=== PATIENT | male | born 1955 | race Caucasian/White ===

== ENCOUNTER 2024-05-25 12:06 | Emergency (ER) | payer MEDICARE, SELFPAY ==
[2024-05-25 12:08] VITALS: BP 185/90; PULSE 73; RESP 16; TEMP 36.5; O2SAT 97; BMI 27.1
--- NOTE | 2024-05-25 12:20 | ED_ITS ---
HPI - Extremity Injury (Lower) <Venita Lipscomb PA-C - Last Filed: 05/25/24 14:36> General Chief Complaint: Extremity Injury, Lower Stated Complaint: sent by [place] r/o blood clot rt leg Time Seen by Provider: 05/25/24 12:20 Source: patient Mode of arrival: Ambulatory History of Present Illness HPI Narrative: Mr. Siddiqi is a very pleasant 69-year-old male with a past medical history of hypertension, GERD, bipolar disorder, prediabetes who presents to the emergency department after being sent by walk-in clinic Dr. Lim for DVT rule out of right leg. Patient reports on Tuesday he twisted and injured his right hip while walking at a store. States that shortly after injuring the hip he developed pain and sensation of numbness on the anterior right lower leg from the knee down to the foot. States that the hip pain has entirely resolved but he continues to have pain and numbness of the right lower leg which prompted him to go to the walk-in clinic in [place]. He was then sent to the emergency depar tme for ultrasound of the right lower leg to rule out DVT. Patient describes sensation of swelling/tightness in the right lower leg and numbness which makes it hard for him to walk/Dr.. He denies back pain, hip pain, abdominal pain, weakness, color change or direct trauma to the lower leg. No history of blood clot, recent surgery or prolonged long travel. Related Data Home Medications Medication Instructions Recorded Confirmed VITAMIN D (Vitamin D3) 1,000 unit PO QDAY ##0 08/01/11 metoprolol tartrate 25 mg tablet 75 mg PO BID ##0 08/01/11 quetiapine 300 mg tablet (Seroquel) 50 mg PO QDAY ##0 08/01/11 [cinnamon] ##0 06/07/16 omega 7-xmw-jun-fish oil 1,000 mg ##0 06/07/16 (120 mg-180 mg) capsule (Fish Oil) Previous Rx's Medication Instructions Recorded gabapentin 100 mg capsule 100 mg PO BID-TID #30 caps 05/25/24 Allergies Allergy/AdvReac Type Severity Reaction Status Date / Time CODEINE Allergy Unknown SEVERE N/V Uncoded 07/20/17 12:21 From VICODIN Allergy Unknown MAKES HIM Uncoded 07/20/17 12:21 PASS OUT Review of Systems <Venita Lipscomb PA-C - Last Filed: 05/25/24 14:36> Review of Systems ROS Unobtainable: All systems reviewed & are unremarkable except as noted in HPI and below Patient History <Venita Lipscomb PA-C - Last Filed: 05/25/24 14:36> Surgical History Status post cholecystectomy Exam <Venita Lipscomb PA-C - Last Filed: 05/25/24 14:36> Narrative Exam Narrative: GENERAL: 69 year old patient appears stated age. Well-developed patient, in no acute distress. HEAD: Atraumatic. Normocephalic. NECK: Trachea midline. Cervical ROM intact. CARDIOVASCULAR: Regular rate and rhythm. RESPIRATORY: ?Nonlabored respirations. ?Speaking in clear, full sentences. ?Clear to auscultation. Breath sounds equal bilaterally. No wheezes, rales, or rhonchi. ? EXTREMITIES: Subjective decreased sensation on the anterior right lower leg from just distal to the knee all the way to the dorsal aspect of the right foot. No tenderness to palpation of the knee or the tibia but he does have tenderness to palpation of the dorsal foot and the lateral malleolus of the right ankle. No tenderness to palpation of atwood, knee, hip. There are no obvious skin changes, no color change or erythema, no increased warmth, no obvious edema or swelling, compartment soft and compressible of the right lower leg. 1+ palpable bilateral DP and PT pulses, brisk capillary refill on all the toes. No pain with flexion and extension of the right knee. No obvious foot drop, but there is pain with both dorsflexion and plantar flexion of R foot. BACK: Nontender without deformity or crepitance. No flank tenderness. No tenderness to palpation of bilateral hips. NEURO: AOx3. ?Clear speech. ?Ambulates with slight limp secondary to right lower leg pain. He has sensation intact throughout the upper and lower extremities but reports that the sensation is decreased on the anterior right lower extremity distal to the knee. There is still 5/5 bilateral knee flexion and extension strength. SKIN: No rash or erythema of visible areas Initial Vital Signs Initial Vital Signs: Vital Signs Temperature 97.7 F 05/25/24 12:08 Pulse Rate 73 05/25/24 12:08 Respiratory Rate 16 05/25/24 12:08 Blood Pressure 185/90 H 05/25/24 12:08 Pulse Oximetry 97 05/25/24 12:08 Oxygen Delivery Method Room Air 05/25/24 12:08 <Liana Manzano DO - Last Filed: 05/26/24 08:08> Initial Vital Signs Initial Vital Signs: Vital Signs Temperature 97.7 F 05/25/24 12:08 Pulse Rate 73 05/25/24 12:08 Respiratory Rate 16 05/25/24 12:08 Blood Pressure 185/90 H 05/25/24 12:08 Pulse Oximetry 97 05/25/24 12:08 Oxygen Delivery Method Room Air 05/25/24 12:08 Course <Venita Lipscomb PA-C - Last Filed: 05/25/24 14:36> Orders Ordered: Discontinued Medications Acetaminophen (Acetaminophen 325 Mg Tablet) 650 mg PO NOW ONE Stop: 05/25/24 12:35 Last Admin: 05/25/24 13:06 Dose: 650 mg Documented By: RAYMOND Gabapentin (Gabapentin 100 Mg Capsule) 100 mg PO NOW ONE Stop: 05/25/24 12:35 Last Admin: 05/25/24 13:07 Dose: 100 mg Documented By: RAYMOND Vital Signs Vital signs: Vital Signs - 8 hr 05/25/24 12:08 05/25/24 14:08 Temperature 97.7 F Pulse Rate 73 71 Respiratory Rate 16 18 Blood Pressure 185/90 H 133/75 Pulse Oximetry 97 98 Oxygen Delivery Method Room Air Room Air <Liana Manzano DO - Last Filed: 05/26/24 08:08> Orders Ordered: Discontinued Medications Acetaminophen (Acetaminophen 325 Mg Tablet) 650 mg PO NOW ONE Stop: 05/25/24 12:35 Last Admin: 05/25/24 13:06 Dose: 650 mg Documented By: RAYMOND Gabapentin (Gabapentin 100 Mg Capsule) 100 mg PO NOW ONE Stop: 05/25/24 12:35 Last Admin: 05/25/24 13:07 Dose: 100 mg Documented By: RAYMOND Vital Signs Vital signs: Vital Signs - 8 hr 05/25/24 12:08 05/25/24 14:08 Temperature 97.7 F Pulse Rate 73 71 Respiratory Rate 16 18 Blood Pressure 185/90 H 133/75 Pulse Oximetry 97 98 Oxygen Delivery Method Room Air Room Air MDM - Extremity Injury (Lower) <Venita Lipscomb PA-C - Last Filed: 05/25/24 14:36> Medical Records Attestation: I reviewed the patient's medical records. Medical records narrative: Reviewed [facility] walk in clinic printed note sent with patient. [facility] Narrative Medical decision making narrative: 69-year-old male with a past medical history of hypertension, GERD, bipolar diso rder, prediabetes who presents to the emergency department after being sent by walk-in clinic Dr. Lim for DVT rule out of right leg. Patient reports on Tuesday he twisted and injured his right hip while walking at a store. States that shortly after injuring the hip he developed pain and sensation of numbness on the anterior right lower leg from the knee down to the foot. Differential diagnosis includes but isn't limited to ankle fracture, ankle sprain, ankle strain, nerve compression, peroneal nerve injury, lumbar radiculopathy, sacroiliitis, piriformis syndrome, DVT, diabetic neuropathy, etc. On exam the patient is in no acute distress, nontoxic appearing, vital signs within normal limits except for elevated blood pressure of 185/90. Patient has been having pain and decreased sensation of the right lower leg ever since injuring his right hip earlier this week. Was sent by the walk-in clinic for DVT rule out given his reported pain and sensation of swelling. On exam the pat dilip's right lower leg is neurovascularly intact, he does have palpable pulses, brisk capillary refill, his sensation is reported be decreased on the anterior right lower leg but not completely absent. He still has proper movement of the right lower leg, Achilles tendon in his intact. He has tenderness to palpation of the right foot and the ankle but no tenderness to palpation of the atwood, knee, thigh, hip, back. Reported paresthesias are somewhat in the distribution of peroneal nerve vs. L5 vs. saphenous/superficial fibular cutaneous nerves, no obvious foot drop. We will proceed with ultrasound to rule out DVT as indicated by walk-in clinic physician in addition to x-rays of the hip, ankle, foot. We will treat with a dose of Tylenol and low dose gabapentin, pt recalls using gabapentin in the past. X-ray of right ankle, foot, hip reveal no acute fractures or dislocations. Right lower extremity venous ultrasound reveals no deep venous thrombosis. All imaging results were printed and discussed with the patient. His pain is improved significantly with the acetaminophen and the gabapentin, reports his pain went from an 8 to a 3. His right ankle was also wrapped using an Red wrap for support. He was provided with a walker as he does not feel safe using crutches. His son and friend to drive him are also in the emergency department. He ambulates independently with a walker. Symptoms are overall most consistent with a peroneal nerve type injury however we discussed potential of neuropathy, radiculopathy, and the need for further evaluation by both his primary care doctor and an orthopedic doctor. He verbalized understanding of all information. Discussed risks of gabapentin. Patient and family are happy with the plan, he is stable for discharge home, all vital signs within normal limits. Strict ED return precautions discussed. Discharge Plan Departure Patient Disposition: Home Clinical Impression: Acute pain of right lower extremity, Neuropathy of right peroneal nerve Instructions: DI for Peripheral Neuropathy Activity Restrictions/Additional Instructions: Dear Devang, Thank you for coming to the emergency department today. Today you were evaluated for pain and some numbness of the right lower leg below the knee after injuring your right hip. We obtained x-rays of the hip, ankle and foot which revealed no fractures or dislocations, and an ultrasound of the right leg which showed no blood clots. Your symptoms are most consistent with irritation of the peroneal nerve in the lower leg. You were treated with Tylenol and gabapentin in the emergency department which improved her symptoms, so I have prescribed you a course of gabapentin to try at home. I would like you to follow up with the orthopedic doctor for further evaluation, or your primary care doctor. You may call to schedule an appointment with [facility] at [phone]. Please be aware that gabapentin can make you drowsy so it is very important not to drive a car operate heavy machinery or drink alcohol while taking this medication. Please use RICE therapy for your pain in addition to ibuprofen/acetaminophen. Rest the painful area. Ice the area of pain/swelling for at least 15 minutes, 4x a day. Compress the area of swelling using a brace, wrap, or splint if applied. Elevate the painful or swollen extremity by supporting it above the level of the heart with pillows when sitting or laying. Please take Ibuprofen (Motrin/Advil) or Acetaminophen (Tylenol) for pain. These are available over the counter. You may take Ibuprofen 600 mg every 8 hours with food for pain. You may also take Acetaminophen 650 mg every 4-6 hours for pain. Do not exceed 3000 mg of Tylenol a day as this can cause liver damage. Do not drink alcohol with either of these medications. Happy Mayers's Day! Please follow up with your primary care doctor within the next 2-3 days for ER follow-up. (If you do not have a PCP you can call [phone]. ?to schedule an appointment with an [facility] Primary Care Provider) IF YOU DEVELOP ANY NEW OR WORSENING SYMPTOMS, RETURN TO THE ER! Please read the attached instructions, they highlight more specific treatments and interventions for you at home. Thank you for letting me participate in your care, Venita Lipscomb PA-C Prescriptions: New gabapentin 100 mg capsule 100 mg PO BID-TID Qty: 30 0RF No Action quetiapine [Seroquel] 300 MG tablet 50 mg PO QDAY Qty: 0 metoprolol tartrate 25 MG tablet 75 mg PO BID Qty: 0 VITAMIN D (Vitamin D3) 1,000 unit PO QDAY Qty: 0 omega 9-pob-vvk-fish oil [Fish Oil] 1,000 MG capsule Qty: 0 [cinnamon] Qty: 0 Referrals: Benita Goldman MD [Primary Care Provider] - Stand Alone Forms: Patient Portal/API/Survey ED Sign-out <Liana Manzano DO - Last Filed: 05/26/24 08:08> Cosign ED Attending Andrew Attestation: I was available for consultation.
--- NOTE | 2024-05-25 12:34 | DI.RAD.S_ITS ---
PROCEDURE: XR FOOT RT MIN 3V INDICATIONS: pain; numbness; no direct trauma TECHNIQUE: 3 views of the foot were acquired. COMPARISON: None. FINDINGS: Bones: No fractures or dislocations. No suspicious bony lesions. Soft tissues: No tibiotalar joint effusion. Achilles tendon appears normal. IMPRESSION: No acute bony abnormality. Dictated by: Barak Su M.D. on 05/25/2024 at 13:09 Approved by: Barak Su M.D. on 05/25/2024 at 13:10
--- NOTE | 2024-05-25 12:34 | DI.US.S_ITS ---
PROCEDURE: US PERIPH VENOUS LOW EXTREM RT INDICATIONS: SWELLING AND NUMBNESS TECHNIQUE: Real-time imaging, as well as color and pulse Doppler interrogation, were performed of the lower extremity deep veins from the inguinal ligament to the popliteal fossa, with documentation of the visualized calf veins. COMPARISON: None. FINDINGS: The common femoral, femoral, popliteal, and the visualized calf veins are normally compressible, and free of intraluminal thrombus. Color and pulse Doppler demonstrate normal phasic intraluminal flow. There is normal augmentation response to distal compression maneuver. IMPRESSION: No findings of lower extremity deep venous thrombosis. Dictated by: Finn Cottrell M.D. on 05/25/2024 at 13:49 Approved by: Finn Cottrell M.D. on 05/25/2024 at 13:50
--- NOTE | 2024-05-25 12:34 | DI.RAD.S_ITS ---
PROCEDURE: XR HIP W PEL IF DONE RT 2V INDICATIONS: tweaked R hip Sun, now with numbness RLL TECHNIQUE: AP pelvis with lateral view(s) of the right hip(s). COMPARISON: None. FINDINGS: Bones: No fractures or dislocations. Pelvic ring appears intact. No suspicious bony lesions. Soft tissues: The visualized bowel gas pattern is normal. No suspicious soft tissue calcifications. IMPRESSION: No acute bony abnormality. Dictated by: Barak Su M.D. on 05/25/2024 at 13:09 Approved by: Barak Su M.D. on 05/25/2024 at 13:09
--- NOTE | 2024-05-25 12:34 | DI.RAD.S_ITS ---
PROCEDURE: XR ANKLE RT MIN 3V INDICATIONS: lateral pain / numbness TECHNIQUE: 3 views of the ankle were acquired. COMPARISON: None. FINDINGS: Bones: No fractures or dislocations. Ankle mortise is normally aligned. No suspicious bony lesions. Soft tissues: No tibiotalar joint effusion. Achilles tendon appears normal. IMPRESSION: No acute bony abnormality or significant effusion. Dictated by: Barak Su M.D. on 05/25/2024 at 13:10 Approved by: Barak Su M.D. on 05/25/2024 at 13:10
[2024-05-25] MEDS: ACETAMINOPHEN 325 MG TABLET 650 MG PO (13:06)
[2024-05-25] MEDS: GABAPENTIN 100 MG CAPSULE PO (13:07)
[2024-05-25 14:08] VITALS: BP 133/75; PULSE 71; RESP 18; O2SAT 98
== END 2024-05-25 14:48 | disposition home or self-care (01) ==
PROVIDERS: Emergency Provider Physician Assistant; PCP Family Medicine
DX: G57.31 Lesion of lateral popliteal nerve, right lower limb (principal); M79.604 Pain in right leg; R60.9 Edema, unspecified; R73.03 Prediabetes; I10 Essential (primary) hypertension
CPT/HCPCS: 73502; 73610; 73630; 93971; 99284

== ENCOUNTER 2024-07-17 09:43 | Emergency (ER) | payer MEDICARE, SELFPAY ==
[2024-07-17 10:12] VITALS: BP 171/81; PULSE 73; RESP 18; TEMP 36.7; O2SAT 98
--- NOTE | 2024-07-17 10:19 | DI.RAD.S_ITS ---
PROCEDURE: XR KNEE RT 3V INDICATIONS: pain TECHNIQUE: 3 views of the knee were acquired. COMPARISON: None. FINDINGS: Bones: No fractures or dislocations. Early degenerative change. Small marginal osteophytes. No suspicious bony lesions. Soft tissues: Trace joint effusion. No suspicious soft tissue calcifications. IMPRESSION: No acute bony abnormality or significant effusion. Early degenerative arthritis. Dictated by: Luis Antonio Cox M.D. on 07/17/2024 at 10:48 Approved by: Luis Antonio Cox M.D. on 07/17/2024 at 10:49
--- NOTE | 2024-07-17 12:24 | ED.GENADULT ---
HPI - General Adult <Twila Rodriguez PA-C - Last Filed: 07/17/24 16:31> General Chief complaint: Extremity Injury, Upper Stated complaint: RT Knee/Leg pain & numbness Time Seen by Provider: 07/17/24 12:18 Source: patient Mode of arrival: Family Vehicle History of Present Illness HPI narrative: 69-year-old male with pre-existing right knee pain presents to the ED with an exacerbation of right leg pain for 5 days. Patient states that this acute exacerbation happened right after he mowed his lawn. Patient describes the pain as going from his knee down to the top of his right foot. Patient is experiencing numbness of the right foot, although the numbness has existed prior to this exacerbation. Patient states he was seen in the ED for similar symptoms in May. However, patient states that he is also feeling right hamstring pain this time around. No trauma. Related Data Home Medications Medication Instructions Recorded Confirmed VITAMIN D (Vitamin D3) 1,000 unit PO QDAY ##0 08/01/11 metoprolol tartrate 25 mg tablet 75 mg PO BID ##0 08/01/11 quetiapine 300 mg tablet (Seroquel) 50 mg PO QDAY ##0 08/01/11 [cinnamon] ##0 06/07/16 omega 5-bax-cej-fish oil 1,000 mg ##0 06/07/16 (120 mg-180 mg) capsule (Fish Oil) Previous Rx's Medication Instructions Recorded gabapentin 100 mg capsule 100 mg PO BID-TID #30 caps 05/25/24 cyclobenzaprine 10 mg tablet 10 mg PO TID PRN muscle spasm #14 07/17/24 tabs Allergies Allergy/AdvReac Type Severity Reaction Status Date / Time acetaminophen [From Vicodin] Allergy Unknown makes him Verified 07/17/24 12:36 pass out codeine Allergy Unknown Nausea/vomi Verified 07/17/24 12:36 ting hydrocodone [From Vicodin] Allergy Unknown makes him Verified 07/17/24 12:36 pass out Review of Systems <Twila Rodriguez PA-C - Last Filed: 07/17/24 16:31> Constitutional Constitutional: Denies chills, Denies fatigue, Denies fever(s), Denies frequent falls, Denies lethargy and Denies weakness Eyes Eyes: Denies change in vision, Denies eye discharge, Denies irritation and Denies loss of vision ENT Ears, Nose, Mouth, and Throat: Denies change in voice, Denies dizziness, Denies neck pain, Denies sore throat and Denies throat swelling Cardiovascular Cardiovascular: Denies chest pain, Denies irregular heart rhythm, Denies lightheadedness, Denies palpitations, Denies dyspnea, Denies dyspnea on exertion and Denies orthopnea Respiratory Respiratory: Denies cough, Denies dyspnea, Denies dyspnea on exertion and Denies wheezing Gastrointestinal Gastrointestinal: Denies abdominal pain, Denies change in bowel habits, Denies diarrhea, Denies nausea and Denies vomiting Musculoskeletal Musculoskeletal: Denies neck pain and Denies numbness Comments: Right-sided knee pain, radiating down his leg. R hamstring pain. Right foot numbness Integumentary/Breasts Skin/Breast: Denies pruritus, Denies erythema, Denies rash and Denies wounds Neurologic Neurologic: Denies behavioral changes, Denies confusion, Denies dizziness, Denies frequent falls, Denies loss of vision, Denies numbness and Denies weakness Psychiatric Psychiatric: Denies anxiety, Denies behavioral changes, Denies confusion, Denies depression, Denies homicidal ideation and Denies suicidal ideation Endocrine Endocrine: Denies fatigue, Denies flushing and Denies palpitations Hematologic/Lymphatic Hematologic/Lymphatic: Denies easy bruising Allergic/Immunologic Allergic/Immunologic: Denies urticaria, Denies throat swelling and Denies wheezing Patient History <Twila Rodriguez PA-C - Last Filed: 07/17/24 16:31> Surgical History Status post cholecystectomy Social History Smoking Status: Never smoker Smoking Status: Never smoker Exam <Twila Rodriguez PA-C - Last Filed: 07/17/24 16:31> Narrative Exam Narrative: Const General:?cooperative, healthy appearing and comfortable [facility] Head:?normal to inspection Ears:?hearing grossly normal bilaterally Nose:?external nose normal Face and sinus:?normal facial exam and sinuses nontender Mouth:?oral mucosae normal Throat:?posterior oropharynx normal Eyes General:?appearance normal, both eyes and all related structures Neck Neck:?normal visual inspection and no lymphadenopathy noted Resp Effort & Inspection:?normal respiratory effort Auscultation:?clear to auscultation bilaterally Cardio Rate:?regular rate Rhythm:?regular rhythm Musculoskeletal There is no tenderness to palpation. No erythema, swelling, deformities, bruising. Full range of motion. Gait is normal. Neurovascularly intact. Neuro General:?patient alert, patient awake and patient oriented x3 Initial Vital Signs Initial Vital Signs: Vital Signs Temperature 98.1 F 07/17/24 10:12 Pulse Rate 73 07/17/24 10:12 Respiratory Rate 18 07/17/24 10:12 Blood Pressure 171/81 H 07/17/24 10:12 Pulse Oximetry 98 07/17/24 10:12 Oxygen Delivery Method Room Air 07/17/24 10:12 <Wilfrido Tao MD - Last Filed: 07/18/24 07:04> Initial Vital Signs Initial Vital Signs: Vital Signs Temperature 98.1 F 07/17/24 10:12 Pulse Rate 73 07/17/24 10:12 Respiratory Rate 18 07/17/24 10:12 Blood Pressure 171/81 H 07/17/24 10:12 Pulse Oximetry 98 07/17/24 10:12 Oxygen Delivery Method Room Air 07/17/24 10:12 Course <Twila Rodriguez PA-C - Last Filed: 07/17/24 16:31> Orders Ordered: Discontinued Medications Cyclobenzaprine HCl (Cyclobenzaprine 10 Mg Tablet) 10 mg PO NOW ONE Stop: 07/17/24 12:31 Last Admin: 07/17/24 12:42 Dose: 10 mg Documented By: ORTEGA Ibuprofen (Ibuprofen 400 Mg Tablet) 800 mg PO NOW ONE Stop: 07/17/24 12:33 Last Admin: 07/17/24 12:42 Dose: 800 mg Documented By: ORTEGA Vital Signs Vital signs: Vital Signs - 8 hr 07/17/24 10:12 07/17/24 13:12 07/17/24 13:42 Temperature 98.1 F 98.4 F Pulse Rate 73 16 L 73 Respiratory Rate 18 16 16 Blood Pressure 171/81 H 174/82 H 153/90 H Pulse Oximetry 98 98 97 Oxygen Delivery Method Room Air Room Air Room Air <Wilfrido Tao MD - Last Filed: 07/18/24 07:04> Orders Ordered: Discontinued Medications Cyclobenzaprine HCl (Cyclobenzaprine 10 Mg Tablet) 10 mg PO NOW ONE Stop: 07/17/24 12:31 Last Admin: 07/17/24 12:42 Dose: 10 mg Documented By: ORTEGA Ibuprofen (Ibuprofen 400 Mg Tablet) 800 mg PO NOW ONE Stop: 07/17/24 12:33 Last Admin: 07/17/24 12:42 Dose: 800 mg Documented By: ORTEGA Vital Signs Vital signs: Vital Signs - 8 hr 07/17/24 10:12 07/17/24 13:12 07/17/24 13:42 Temperature 98.1 F 98.4 F Pulse Rate 73 16 L 73 Respiratory Rate 18 16 16 Blood Pressure 171/81 H 174/82 H 153/90 H Pulse Oximetry 98 98 97 Oxygen Delivery Method Room Air Room Air Room Air Medical Decision Making <Twila Rodriguez PA-C - Last Filed: 07/17/24 16:31> MDM Narrative Medical decision making narrative: 69-year-old male with pre-existing right knee pain presents to the ED with an exacerbation of right leg pain for 5 days. Concern for fracture/dislocation versus musculoskeletal sprain/strain versus DVT versus other. X-ray of the knee without acute findings. Will obtain ultrasound. Will treat with Flexeril and ibuprofen. Will reassess. Ultrasound negative for lower extremity DVT. Discussed findings with patient. Patient's symptoms improved with Flexeril and ibuprofen. Prescribed Flexeril. Recommend continuing ibuprofen and Flexeril. Recommend follow-up with PCP and ortho as soon as possible. ED return precautions discussed with patient. Patient verbalized understanding. Medical records reviewed: Yes Discharge Plan Departure Patient Disposition: Home Clinical Impression: Knee pain Qualifiers: Chronicity: acute Laterality: right Qualified Code(s): M25.561 - Pain in right knee Instructions: DI for Knee Pain Activity Restrictions/Additional Instructions: You were evaluated in the ED today for right-sided knee pain. Your ultrasound and x-ray were normal. It appears that your symptoms are an exacerbation of your pre-existing knee pain. You are being prescribed a muscle relaxant for relief from the pain. You may also take 600-800 mg of ibuprofen with food every 8 hours for pain relief. Please follow-up with your PCP and ortho specialist as soon as possible. Return to the ED if you have worsening symptoms. Prescriptions: New cyclobenzaprine 10 mg tablet 10 mg PO TID PRN (Reason: muscle spasm) Qty: 14 0RF No Action quetiapine [Seroquel] 300 MG tablet 50 mg PO QDAY Qty: 0 metoprolol tartrate 25 MG tablet 75 mg PO BID Qty: 0 VITAMIN D (Vitamin D3) 1,000 unit PO QDAY Qty: 0 omega 1-hef-xzt-fish oil [Fish Oil] 1,000 MG capsule Qty: 0 [cinnamon] Qty: 0 gabapentin 100 mg capsule 100 mg PO BID-TID Qty: 30 0RF Referrals: Benita Goldman MD [Primary Care Provider] - Stand Alone Forms: Patient Portal/API/Survey ED Sign-out <Wilfrido Tao MD - Last Filed: 07/18/24 07:04> Cosign ED Attending Cosignature Attestation: I was immediately available in the department for consultation. This documentation has been reviewed and I agree with assessment and plan. Supervised by Wilfrido Tao MD
--- NOTE | 2024-07-17 12:31 | DI.US.S_ITS ---
PROCEDURE: US PERIP VENOUS LOW EXTREM RT INDICATIONS: R leg pain TECHNIQUE: Real-time imaging, as well as color and pulse Doppler interrogation, were performed of the lower extremity deep veins from the inguinal ligament to the popliteal fossa, with documentation of the visualized calf veins. COMPARISON: [facility], US, US [facility] VENOUS LOW EXTREM RT, 05/25/2024, 13:26. FINDINGS: The common femoral, femoral, popliteal, and the visualized calf veins are normally compressible, and free of intraluminal thrombus. Color and pulse Doppler demonstrate normal phasic intraluminal flow. There is normal augmentation response to distal compression maneuver. IMPRESSION: Negative right lower extremity duplex venous ultrasound for DVT. Dictated by: Luis Antonio Cox M.D. on 07/17/2024 at 13:18 Approved by: Luis Antonio Cox M.D. on 07/17/2024 at 13:28
[2024-07-17] MEDS: IBUPROFEN 400 MG TABLET 800 MG PO (12:42)
[2024-07-17] MEDS: CYCLOBENZAPRINE 10 MG TABLET PO (12:42)
[2024-07-17 13:12] VITALS: BP 174/82; PULSE 16; RESP 16; TEMP 36.9; O2SAT 98
[2024-07-17 13:42] VITALS: BP 153/90; PULSE 73; RESP 16; O2SAT 97
== END 2024-07-17 13:42 | disposition home or self-care (01) ==
PROVIDERS: Emergency Provider Student in an Organized Health Care Education/Training Program; PCP Family Medicine
DX: M25.561 Pain in right knee (principal); R20.0 Anesthesia of skin; M79.651 Pain in right thigh; Y93.H9 Activity, other involving exterior property and land maintenance, building and construction
CPT/HCPCS: 73562; 93971; 99283

== ENCOUNTER 2024-08-01 21:22 | Emergency (ER) | payer MEDICARE, SELFPAY ==
[2024-08-01 21:37] VITALS: BP 108/69; PULSE 94; RESP 20; TEMP 36.5; O2SAT 95
--- NOTE | 2024-08-01 21:58 | PC.NURSE ---
pt c/o difficulty urinating x one month, pt voided upon arrival to room with a bladder scan post void of 57 ml, urine is yellow with a foul smell and sent to lab for UA
[2024-08-01 22:04] LABS: Appearance Urine UA CLEAR; Bilirubin Urine UA NEGATIVE (NEGATIVE); Color Urine UA YELLOW; Glucose Urine UA 3+ g/dL (Negative); Ketones Urine UA NEGATIVE (NEGATIVE); Leukocyte Esterase Urine UA NEGATIVE (NEGATIVE); Nitrite Urine UA NEGATIVE (Negative); Occult Blood Urine UA NEGATIVE (Negative); Protein Urine UA NEGATIVE (Negative)
[2024-08-01 22:11] LABS: Bacteria Urine None Seen; Culture Indicated Urine Cult Not Indicated; RBC Urine None Seen (0-5/HPF); Squamous Epithelial Cell Urine None Seen (0-5/HPF); Urine Volume 10mL (spun); WBC Urine None Seen (0-5/HPF)
[2024-08-01 23:00] VITALS: BP 110/60; PULSE 88; RESP 18; O2SAT 100
--- NOTE | 2024-08-01 23:13 | ED.MALEGU ---
HPI - Male Genitourinary General Chief complaint: Urogenital-Male Stated complaint: issues with urination Time Seen by Provider: 08/01/24 21:53 Source: patient Mode of arrival: Ambulatory History of Present Illness HPI Narrative: 69-year-old gentleman history of hypertension and anxiety presents with difficulty urinating and emptying his bladder that has been intermittent over the last few months worse in the past month. Patient denies enlarged prostate, hematuria, penile discharge, or testicular pain or fever or chills. Other than what is stated 14 point review of system is negative. Related Data Home Medications Medication Instructions Recorded Confirmed VITAMIN D (Vitamin D3) 1,000 unit PO QDAY ##0 08/01/11 metoprolol tartrate 25 mg tablet 75 mg PO BID ##0 08/01/11 quetiapine 300 mg tablet (Seroquel) 50 mg PO QDAY ##0 08/01/11 [cinnamon] ##0 06/07/16 omega 7-mzm-vwo-fish oil 1,000 mg ##0 06/07/16 (120 mg-180 mg) capsule (Fish Oil) Previous Rx's Medication Instructions Recorded gabapentin 100 mg capsule 100 mg PO BID-TID #30 caps 05/25/24 cyclobenzaprine 10 mg tablet 10 mg PO TID PRN muscle spasm #14 07/17/24 tabs Allergies Allergy/AdvReac Type Severity Reaction Status Date / Time acetaminophen [From Vicodin] Allergy Unknown makes him Verified 07/17/24 12:36 pass out codeine Allergy Unknown Nausea/vomi Verified 07/17/24 12:36 ting hydrocodone [From Vicodin] Allergy Unknown makes him Verified 07/17/24 12:36 pass out Review of Systems Review of Systems ROS Unobtainable: All systems reviewed & are unremarkable except as noted in HPI and below Patient History Surgical History Status post cholecystectomy Social History Smoking Status: Never smoker Smoking Status: Never smoker Exam Narrative Exam Narrative: GENERAL: [69] year old patient appears stated age. Well-developed patient, in mild distress. HEAD: Atraumatic. Normocephalic. EYES: Pupils equal round and reactive. Extraocular motions intact. No scleral icterus. No injection or drainage. ENT: Nose without bleeding, purulent drainage. Throat without erythema, tonsillar hypertrophy or exudate. Airway patent. NECK: Trachea midline. Non tender CARDIOVASCULAR: Regular rate and rhythm without murmurs, gallops, or rubs. RESPIRATORY: Clear to auscultation. Breath sounds equal bilaterally. No wheezes, rales, or rhonchi. GASTROINTESTINAL: Abdomen soft, non-tender, nondistended. EXTREMITIES: No edema or joint tenderness. BACK: Nontender without deformity or crepitance. No flank tenderness. NEURO: AOx3. SKIN: No rash or erythema of visible areas Initial Vital Signs Initial Vital Signs: Vital Signs Temperature 97.7 F 08/01/24 21:37 Pulse Rate 94 H 08/01/24 21:37 Respiratory Rate 20 08/01/24 21:37 Blood Pressure 108/69 08/01/24 21:37 Pulse Oximetry 95 08/01/24 21:37 Oxygen Delivery Method Room Air 08/01/24 21:37 Course Orders Ordered: ED Orders 08/01/24 21:55 Urinalysis and Microscopic Stat 08/01/24 23:15 CT abdomen pelvis wo con Stat Discontinued Medications Tamsulosin HCl (Tamsulosin 0.4 Mg Capsule) 0.4 mg PO NOW ONE Stop: 08/01/24 23:17 Last Admin: 08/01/24 23:30 Dose: 0.4 mg Documented By: AB Vital Signs Vital signs: Vital Signs - 8 hr 08/01/24 21:37 Temperature 97.7 F Pulse Rate 94 H Respiratory Rate 20 Blood Pressure 108/69 Pulse Oximetry 95 Oxygen Delivery Method Room Air MDM - Male Genitourinary Lab Data Labs: Lab Results 08/01/24 Range/Units 21:55 Urine Color Yellow Urine Appearance Clear Urine pH 6.0 (4.5-8.0) Ur Specific [place] 1.010 (1.000-1.035) Urine Protein Negative (Negative) Urine Glucose (UA) 3+ H (Negative) g/dL Urine Ketones Negative (NEGATIVE) Urine Occult Blood Negative (Negative) Urine Nitrate Negative (Negative) Urine Bilirubin Negative (NEGATIVE) Urine Urobilinogen 1.0 (0.2) E.U./dL Ur Leukocyte Esterase Negative (NEGATIVE) Urine RBC None seen (0-5/HPF) Urine WBC None seen (0-5/HPF) Ur Squamous Epith Cells None seen (0-5/HPF) Urine Bacteria None seen (None) Ur Culture Indicated? Cult not indicated Vol Urine Centrifuged 10ml (spun) Imaging Data CT scan - abdomen/pelvis: Radiologist's Impression: [address] [address] [address] Scan Report Signed Patient: Yeyo Siddiqi MR#: [id number] : 1955 Acct:[id number] Age/Sex: 69 / M Date of Service: 08/01/24 Loc: ED Accession Number: [id number] Procedure: CT abdomen pelvis wo con Ordering Provider: Randall Campbell D.O. PROCEDURE: CT ABDOMEN PELVIS WO CON INDICATIONS: abd /pelvic pain TECHNIQUE: Axial sections were acquired from the lung bases to the pubic symphysis. Coronal and sagittal reformats were performed. For radiation dose reduction, the following was used: automated exposure control, adjustment of mA and/or kV according to patient size. COMPARISON: None. FINDINGS: Image quality: Diagnostic. Lower Chest: No significant findings. URINARY: Right Kidney: No stones or hydronephrosis. Right Ureter: No hydroureter. Left Kidney: Punctate nonobstructing left-sided nephrolithiasis. No hydronephrosis. Left Ureter: No hydroureter. Bladder: Normal wall thickness. No stones. ABDOMEN: Liver: Hepatic cysts. Additional subcentimeter hypoattenuating lesions, too small to characterize by CT. Gallbladder: Absent. Biliary ducts: No biliary dilation. Pancreas: No ductal dilation. Spleen: Size is within normal limits. Adrenal Glands: Nodular thickening of the left adrenal gland. Stomach and Bowel: Wall thickening of the 2nd segment of the duodenum, with associated fat stranding and trace fluid (series 2, image 46). Peritoneum: No abnormal intraperitoneal fluid. No free air. Ventral Wall: No hernia. Abdominal Nodes: No enlarged retroperitoneal or mesenteric lymph nodes. Vessels: Aorta and inferior vena cava are normal in size. PELVIS: Pelvic Organs: Unremarkable. Pelvic Nodes: Unremarkable. Miscellaneous: Small to moderate, bilateral direct inguinal hernias containing fat. Bones: Unremarkable. IMPRESSION: Small to moderate, bilateral, direct inguinal hernias containing fat. Wall thickening and adjacent inflammatory changes about the 2nd portion of the duodenum, suggestive of duodenitis. Correlate with symptoms. If there are no symptoms, endoscopic evaluation should be considered to exclude malignancy. MDM Narrative Medical decision making narrative: UA and CT scan reviewed. Even though patient came in with difficulty urinating he was able to void on his own and the bladder scan did not show that he was retaining urine. Vital signs, nurse triage note, medication list, old records, previous ER visits all reviewed. Differential diagnosis includes kidney stones kidney infection BPH diverticulitis tumor. Patient has upcoming PC appointment next Tuesday to follow up with. DC home on Protonix and Flomax. Discharge Plan Departure Patient Disposition: Home Clinical Impression: Duodenitis, Difficulty urinating Prescriptions: No Action quetiapine [Seroquel] 300 MG tablet 50 mg PO QDAY Qty: 0 metoprolol tartrate 25 MG tablet 75 mg PO BID Qty: 0 VITAMIN D (Vitamin D3) 1,000 unit PO QDAY Qty: 0 omega 6-ehr-vwz-fish oil [Fish Oil] 1,000 MG capsule Qty: 0 [cinnamon] Qty: 0 cyclobenzaprine 10 mg tablet 10 mg PO TID PRN (Reason: muscle spasm) Qty: 14 0RF gabapentin 100 mg capsule 100 mg PO BID-TID Qty: 30 0RF Referrals: Benita Goldman MD [Primary Care Provider] - Stand Alone Forms: Patient Portal/API/Survey
[2024-08-01] MEDS: TAMSULOSIN 0.4 MG CAPSULE PO (23:30)
[2024-08-02] MEDS: PANTOPRAZOLE DR 20 MG TABLET 40 MG PO (00:55)
[2024-08-02 01:02] VITALS: BP 106/64; PULSE 86; RESP 16; O2SAT 99
== END 2024-08-02 01:03 | disposition home or self-care (01) ==
PROVIDERS: Emergency Provider Family Medicine; PCP Family Medicine
DX: K29.80 Duodenitis without bleeding (principal); R39.198 Other difficulties with micturition
CPT/HCPCS: 51798; 74176; 81001; 99283; 99284

== ENCOUNTER 2024-08-02 16:50 | Emergency (ER) | payer MEDICARE, SELFPAY ==
[2024-08-02] VITALS (11 sets, daily range): BP systolic 160–171; BP diastolic 80–92; PULSE 86–101; RESP 17–20; TEMP 37; O2SAT 93–98; BMI 26.6
--- NOTE | 2024-08-02 17:15 | ED_ITS ---
HPI - Extremity Problem <Venita Lipscomb PA-C - Last Filed: 08/02/24 19:01> General Chief complaint: Extremity Problem,Nontraumatic Stated complaint: leg swelling and px, was here earlier Time Seen by Provider: 08/02/24 17:14 Source: patient Mode of arrival: Family Vehicle History of Present Illness HPI Narrative: Mr. Siddiqi is a pleasant 69-year-old male with a past medical history of hypertension, GERD, bipolar disorder, prediabetes who presents to the emergency department for right leg pain x5 days. Patient was seen in the emergency department last night and discharged at 1:00 a.m. this morning for difficulty urinating. Patient states that he had been having trouble voiding so he came to the emergency department and did not tell the doctor about his severe right leg pain because they were busy. He had a CT abdomen and pelvis without IV contrast and a urine test performed which revealed bilateral fat containing inguinal hernias and duodenitis. Patient was not retaining urine so he was sent home with prescriptions for Flomax and Protonix however he states that he was unable to pick these up from [facility] because they told him that they needed physician approval 1st. Patient states that his urinary symptoms are somewhat improving but his right leg pain is becoming more and more severe. Patient 1st experienced similar right leg pain in the beginning of May after ?tweaking? his right hip. I had seen him myself in the emergency department 05/25/2024, and the symptoms he was having at that time are similar to what he is describing today, urgent care had sent him to the ER for US. He is reporting severe intermittent pain in his right hamstring and his right lower leg from the knee down to the foot. He reports the feeling of decreased sensation in the lower leg from the knee down to the foot and on the bottom of the foot. Reports that it feels like ?I am walking on a water of paper?. States that his symptoms never completely resolved after his injury in May but they were getting much better until he was mowing his lawn 5 days ago. The pain wakes him up out of sleep in the middle of the night. He has not taken anything for the pain today because he states nothing works including ibuprofen Tylenol and gabapentin. Reports that he did have a fall in the shower yesterday morning and he did have a fall in the emergency department last night however denies hitting his head, LOC or any exacerbation of pain after the falls. He denies chest pain, shortness of breath, fevers, chills. He does not use any drugs, tobacco products or drink alcohol. He lives alone, a neighbor has been driving him since he can not feel the bottom of his foot for the last 5 days. Related Data Home Medications Medication Instructions Recorded Confirmed VITAMIN D (Vitamin D3) 1,000 unit PO QDAY ##0 08/01/11 metoprolol tartrate 25 mg tablet 75 mg PO BID ##0 08/01/11 quetiapine 300 mg tablet (Seroquel) 50 mg PO QDAY ##0 08/01/11 [cinnamon] ##0 06/07/16 omega 7-lqt-kez-fish oil 1,000 mg ##0 06/07/16 (120 mg-180 mg) capsule (Fish Oil) Previous Rx's Medication Instructions Recorded gabapentin 100 mg capsule 100 mg PO BID-TID #30 caps 05/25/24 cyclobenzaprine 10 mg tablet 10 mg PO TID PRN muscle spasm #14 07/17/24 tabs methylprednisolone 4 mg tablets in See Rx Instructions PO .COMPLEX 08/02/24 a dose pack (Medrol (Lj)) #21 ea oxycodone-acetaminophen 5 mg-325 1 tab PO Q4-6H PRN pain #20 tabs 0424/25 mg tablet (Percocet) oxycodone-acetaminophen 5 mg-325 1 tab PO Q4-6H PRN pain #20 tabs 24/25 mg tablet (Percocet) oxycodone-acetaminophen 5 mg-325 1 tab PO Q6H PRN pain #20 tabs 24/25 mg tablet (Percocet) pantoprazole 40 mg tablet,delayed 40 mg PO DAILY #30 tabs 08/02/24 release (Protonix) tamsulosin 0.4 mg capsule (Flomax) 0.4 mg PO DAILY #30 caps 08/02/24 Allergies Allergy/AdvReac Type Severity Reaction Status Date / Time hydromorphone [From Dilaudid] Allergy Intermediate Shakiness Verified 08/02/24 23:55 acetaminophen [From Vicodin] Allergy Unknown makes him Verified 08/02/24 17:01 pass out codeine Allergy Unknown Nausea/vomi Verified 08/02/24 17:01 ting hydrocodone [From Vicodin] Allergy Unknown makes him Verified 08/02/24 17:01 pass out Review of Systems <Venita Lipscomb PA-C - Last Filed: 08/02/24 19:01> Review of Systems ROS Unobtainable: All systems reviewed & are unremarkable except as noted in HPI and below Patient History <Venita Lipscomb PA-C - Last Filed: 08/02/24 19:01> Surgical History Status post cholecystectomy Social History Smoking Status: Never smoker Smoking Status: Never smoker Exam <Venita Lipscomb PA-C - Last Filed: 08/02/24 19:01> Narrative Exam Narrative: GENERAL: 69 year old patient appears stated age. Well-developed patient, in acute distress, crying out and grabbing right hamstring 2/2 pain. HEAD: Atraumatic. Normocephalic. EYES: No scleral icterus. No injection or drainage. NECK: Trachea midline. Cervical ROM intact. CARDIOVASCULAR: Regular rate and rhythm. RESPIRATORY: ?Nonlabored respirations. ?Speaking in clear, full sentences. ?Clear to auscultation. He does have occasional cough. GASTROINTESTINAL: Abdomen soft, non-tender, nondistended. EXTREMITIES: Subjective pain in right hamstring and from right knee distally to foot. There is tenderness to palpation of the plantar right foot with no deformities. There is no lower extremity edema or deformities of the right lower extremity. No open wounds. Patient has sensation intact to light touch on the plantar and dorsal aspect of bilateral feet and strong DP and PT pulses on both feet, and brisk capillary refill in the toes. He does report decreased sensation from the knee down to the right foot. Limited R plantar/dorsiflexion due to pain BACK: There is no midline spinal tenderness, no flank tenderness, no SI joint tenderness. Patient does have exacerbation of right hamstring pain with right straight leg raise but declines any pain in the low back. NEURO: AOx3. ?Clear speech. ?Goes from sitting to standing position with the assistance, ambulates with the assistance and great pain in the right leg. SKIN: No rash or erythema of visible areas Initial Vital Signs Initial Vital Signs: Vital Signs Temperature 98.6 F 08/02/24 16:55 Pulse Rate 92 H 08/02/24 16:55 Respiratory Rate 17 08/02/24 16:55 Blood Pressure 171/89 H 08/02/24 16:55 Pulse Oximetry 98 08/02/24 16:55 Oxygen Delivery Method Room Air 08/02/24 16:55 <Randall Campbell, - Last Filed: 08/03/24 00:29> Initial Vital Signs Initial Vital Signs: Vital Signs Temperature 98.6 F 08/02/24 16:55 Pulse Rate 92 H 08/02/24 16:55 Respiratory Rate 17 08/02/24 16:55 Blood Pressure 171/89 H 08/02/24 16:55 Pulse Oximetry 98 08/02/24 16:55 Oxygen Delivery Method Room Air 08/02/24 16:55 Course <Venita Lipscomb PA-C - Last Filed: 08/02/24 19:01> Orders Ordered: ED Orders 08/02/24 17:00 CBC Auto Diff [Complete Blood Count AUTO DIFF] Stat CK [Creatine Kinase] Stat CMP [Comprehensive Metabolic Panel] Stat MG [Magnesium] Stat Uric Acid Stat 08/02/24 17:45 CT lumbar spine wo con Stat 08/02/24 18:27 US periph venous low extrem rt Stat Discontinued Medications Hydromorphone HCl (Hydromorphone 1 Mg Inj) 1 mg IV NOW ONE Stop: 08/02/24 20:13 Last Admin: 08/02/24 20:39 Dose: 1 mg Documented By: ANABELA Hydromorphone HCl (Hydromorphone 1 Mg Inj) 1 mg IV NOW ONE Stop: 08/02/24 22:46 Last Admin: 08/02/24 22:57 Dose: 1 mg Documented By: ANABELA Ketorolac Tromethamine (Ketorolac 30 Mg/Ml Vial) 15 mg IV NOW ONE Stop: 08/02/24 17:46 Last Admin: 08/02/24 18:21 Dose: 15 mg Documented By: ANNETTE Methylprednisolone (Methylprednisolone 125 Mg/2 Ml Vial) 125 mg IV NOW ONE Stop: 08/02/24 22:46 Last Admin: 08/02/24 22:57 Dose: 125 mg Documented By: ANABELA Ondansetron HCl (Ondansetron 4 Mg/2 Ml Inj) 4 mg IV NOW ONE Stop: 08/02/24 23:42 Last Admin: 08/02/24 23:48 Dose: 4 mg Documented By: Pantoprazole Sodium (Pantoprazole Dr 20 Mg Tablet) 40 mg PO NOW ONE Stop: 08/02/24 20:32 Last Admin: 08/02/24 20:40 Dose: 40 mg Documented By: ANABELA Tamsulosin HCl (Tamsulosin 0.4 Mg Capsule) 0.4 mg PO NOW ONE Stop: 08/02/24 20:30 Last Admin: 08/02/24 20:40 Dose: 0.4 mg Documented By: ANABELA Consultations Consultation #1: Discussed CT AP performed last night with Dr. Walker, radiologist authorization manager. I was interested in obtaining a CT lumbar spine and CT pelvis to look at the right hip however since this study was just performed last night I asked her to pay special attention to the lumbar spine and hip, she reports that there is no acute bony abnormalities, there is mild age-appropriate lumbar degenerative disc disease. Time: 18:18 Vital Signs Vital signs: Vital Signs - 8 hr 08/02/24 16:55 08/02/24 19:30 08/02/24 19:31 Temperature 98.6 F Pulse Rate 92 H 96 H Respiratory Rate 17 18 Blood Pressure 171/89 H 167/83 H 167/83 H Pulse Oximetry 98 94 Oxygen Delivery Method Room Air 08/02/24 19:31 08/02/24 20:00 08/02/24 20:30 Temperature Pulse Rate 93 H 101 H 100 H Respiratory Rate 18 18 Blood Pressure Pulse Oximetry 94 96 94 Oxygen Delivery Method Room Air 08/02/24 21:00 08/02/24 21:30 08/02/24 22:00 Temperature Pulse Rate 97 H 92 H 91 H Respiratory Rate 18 18 Blood Pressure 160/80 H Pulse Oximetry 93 93 93 Oxygen Delivery Method Room Air Room Air 08/02/24 23:00 08/02/24 23:02 Temperature Pulse Rate 100 H Respiratory Rate 20 Blood Pressure 163/92 H Pulse Oximetry 94 Oxygen Delivery Method Room Air <Randall Campbell, - Last Filed: 08/03/24 00:29> Orders Ordered: ED Orders 08/02/24 17:00 CBC Auto Diff [Complete Blood Count AUTO DIFF] Stat CK [Creatine Kinase] Stat CMP [Comprehensive Metabolic Panel] Stat MG [Magnesium] Stat Uric Acid Stat 08/02/24 17:45 CT lumbar spine wo con Stat 08/02/24 18:27 US periph venous low extrem rt Stat Discontinued Medications Hydromorphone HCl (Hydromorphone 1 Mg Inj) 1 mg IV NOW ONE Stop: 08/02/24 20:13 Last Admin: 08/02/24 20:39 Dose: 1 mg Documented By: ANABELA Hydromorphone HCl (Hydromorphone 1 Mg Inj) 1 mg IV NOW ONE Stop: 08/02/24 22:46 Last Admin: 08/02/24 22:57 Dose: 1 mg Documented By: ANABELA Ketorolac Tromethamine (Ketorolac 30 Mg/Ml Vial) 15 mg IV NOW ONE Stop: 08/02/24 17:46 Last Admin: 08/02/24 18:21 Dose: 15 mg Documented By: ANNETTE Methylprednisolone (Methylprednisolone 125 Mg/2 Ml Vial) 125 mg IV NOW ONE Stop: 08/02/24 22:46 Last Admin: 08/02/24 22:57 Dose: 125 mg Documented By: ANABELA Ondansetron HCl (Ondansetron 4 Mg/2 Ml Inj) 4 mg IV NOW ONE Stop: 08/02/24 23:42 Last Admin: 08/02/24 23:48 Dose: 4 mg Documented By: Pantoprazole Sodium (Pantoprazole Dr 20 Mg Tablet) 40 mg PO NOW ONE Stop: 08/02/24 20:32 Last Admin: 08/02/24 20:40 Dose: 40 mg Documented By: ANABELA Tamsulosin HCl (Tamsulosin 0.4 Mg Capsule) 0.4 mg PO NOW ONE Stop: 08/02/24 20:30 Last Admin: 08/02/24 20:40 Dose: 0.4 mg Documented By: ANABELA Vital Signs Vital signs: Vital Signs - 8 hr 08/02/24 16:55 08/02/24 19:30 08/02/24 19:31 Temperature 98.6 F Pulse Rate 92 H 96 H Respiratory Rate 17 18 Blood Pressure 171/89 H 167/83 H 167/83 H Pulse Oximetry 98 94 Oxygen Delivery Method Room Air 08/02/24 19:31 08/02/24 20:00 08/02/24 20:30 Temperature Pulse Rate 93 H 101 H 100 H Respiratory Rate 18 18 Blood Pressure Pulse Oximetry 94 96 94 Oxygen Delivery Method Room Air 08/02/24 21:00 08/02/24 21:30 08/02/24 22:00 Temperature Pulse Rate 97 H 92 H 91 H Respiratory Rate 18 18 Blood Pressure 160/80 H Pulse Oximetry 93 93 93 Oxygen Delivery Method Room Air Room Air 08/02/24 23:00 08/02/24 23:02 Temperature Pulse Rate 100 H Respiratory Rate 20 Blood Pressure 163/92 H Pulse Oximetry 94 Oxygen Delivery Method Room Air MDM - Extremity (Nontraumatic) <Venita Lipscomb PA-C - Last Filed: 08/02/24 19:01> Medical Records Attestation: I reviewed the patient's medical records. Medical records narrative: Patient was discharged this morning around 1:00 a.m. for difficulty urinating and duodenitis. Patient was seen in the ER right knee pain. Patient was seen in the ER on 05/25/2024 for acute pain of the right lower extremity, neuropathy of right peroneal nerve distribution Lab Data 08/02/24 17:00 08/02/24 17:00 Labs: Lab Results 08/02/24 Range/Units 17:00 WBC 8.9 (4.5-11.0) X10^3/uL RBC 5.18 (4.5-5.9) X10^6/uL Hgb 15.7 (13.5-17.5) g/dL Hct 45.7 (41-53) % MCV 88.1 (80-100) fL MCH 30.3 (26-34) PG MCHC 34.4 (30-36) % RDW 14.0 (11.6-14.8) % Plt Count 212 (150-400) X10^3/uL Neut % (Auto) 66.1 (50-75) % Lymph % (Auto) 23.2 L (25-40) % [place] % (Auto) 9.0 (3-14) % Eos % (Auto) 1.1 L (2-4) % Baso % (Auto) 0.6 (0-2) % Neut # (Auto) 5900 (5484-2494) /uL Lymph # (Auto) 2100 (8933-8962) /uL [place] # (Auto) 800 (0-900) /uL Eos # (Auto) 100 (0-450) /uL Baso # (Auto) 100 (0-100) /uL Sodium 137 (137-145) mmol/L Potassium 3.8 (3.4-5.1) mmol/L Chloride 99 (98-107) mmol/L Carbon Dioxide 26 (22-32) mmol/L BUN 16 (9-20) mg/dL Creatinine 0.90 (0.66-1.25) mg/dL Estimated GFR > 60 (>60) mL/min BUN/Creatinine Ratio 17.8 (6-22) Glucose 186 H (70-99) mg/dL Uric Acid 3.7 (3.5-8.5) mg/dL Calcium 9.8 (8.4-10.2) mg/dL Magnesium 1.7 (1.6-2.3) mg/dL Total Bilirubin 1.0 (0.2-1.3) mg/dL AST 31 (17-59) IU/L ALT 33 (<50) IU/L Alkaline Phosphatase 87 (38-126) U/L Total Creatine Kinase 174 H (55-170) U/L Total Protein 8.0 (6.3-8.2) g/dL Albumin 4.7 (3.5-5.0) g/dL Globulin 3.3 (1.7-4.1) g/dL Albumin/Globulin Ratio 1.4 (1.0-2.8) Urine Dip Bedside Urine Glucose 1000 mg/dl Bedside Urine Bilirubin - Negative Bedside Urine Ketone - Negative Urine Specific [place] 1.015 Bedside Urine Occult Blood - Negative Bedside Urine pH 6.0 Bedside Urine Protein - Negative Bedside Urine Urobilinogen - Negative Bedside Urine Nitrite - Negative Bedside Urine Leukocytes - Negative Esterase MDM Narrative Medical decision making narrative: 69-year-old male with a past medical history of hypertension, GERD, bipolar disorder, prediabetes who presents to the emergency department for right leg pain x5 days. Differential diagnosis includes but not limited to right lumbar radiculopathy, sciatica, peroneal nerve neuropathy, muscle spasm, muscle strain, DVT, electrolyte abnormalities, renal failure etc. On exam patient is in mild acute distress secondary to right hamstring and right lower leg pain, nontoxic-appearing, vital signs revealed mildly elevated heart rate and blood pressure, normal oxygen saturation and temperature. Patient has been seen in the emergency department twice prior for similar symptoms to today, he had improvement in the past with gabapentin and was Flexeril however he reports he has no longer helping. Knee x-ray on 07/17/2024 did reveal early degenerative arthritis and small marginal osteophytes. CT scan last night revealed the bones were ?unremarkable? there was small to moderate bilateral direct inguinal hernias containing fat and wall thickening of the 2nd portion of the duodenum suggestive of duodenitis. Patient's pain is in his right hamstring muscle region, and also he has pain and reported decreased sensation from the right knee all the way down to the right foot. These symptoms have been intermittent since early May 2024 when he ?tweaked? his right hip. He has a primary care doctor's appointment scheduled for Tuesday. I called and discussed last night CT scan with on-call radiologist Dr. Odom, who reports there is mild age-appropriate lumbar degenerative disc disease but otherwise no abnormalities of the lumbar spine or right hip. Discussed the case with the nighttime ED attending Dr. Campbell, would like to proceed with the additional right leg venous ultrasound. We will also obtain baseline CBC, CMP, magnesium, CK and UA. Normal POC UA, no signs of blood or infection. Labs reveal normal WBC count 8.9, hemoglobin 15.7 hematocrit 45.7. Normal sodium 137 potassium 3.8, BUN 16 and creatinine 0.90. Normal calcium 9.8. His glucose is elevated at 186. Normal liver enzymes. Magnesium and CK pending at my time of shift change. Patient aware and agreeable to transfer of care over to main emergency department. <Randall Campbell, DO - Last Filed: 08/03/24 00:29> Lab Data Labs: Lab Results 08/02/24 Range/Units 17:00 WBC 8.9 (4.5-11.0) X10^3/uL RBC 5.18 (4.5-5.9) X10^6/uL Hgb 15.7 (13.5-17.5) g/dL Hct 45.7 (41-53) % MCV 88.1 (80-100) fL MCH 30.3 (26-34) PG MCHC 34.4 (30-36) % RDW 14.0 (11.6-14.8) % Plt Count 212 (150-400) X10^3/uL Neut % (Auto) 66.1 (50-75) % Lymph % (Auto) 23.2 L (25-40) % [place] % (Auto) 9.0 (3-14) % Eos % (Auto) 1.1 L (2-4) % Baso % (Auto) 0.6 (0-2) % Neut # (Auto) 5900 (4153-4877) /uL Lymph # (Auto) 2100 (6155-2636) /uL [place] # (Auto) 800 (0-900) /uL Eos # (Auto) 100 (0-450) /uL Baso # (Auto) 100 (0-100) /uL Sodium 137 (137-145) mmol/L Potassium 3.8 (3.4-5.1) mmol/L Chloride 99 (98-107) mmol/L Carbon Dioxide 26 (22-32) mmol/L BUN 16 (9-20) mg/dL Creatinine 0.90 (0.66-1.25) mg/dL Estimated GFR > 60 (>60) mL/min BUN/Creatinine Ratio 17.8 (6-22) Glucose 186 H (70-99) mg/dL Uric Acid 3.7 (3.5-8.5) mg/dL Calcium 9.8 (8.4-10.2) mg/dL Magnesium 1.7 (1.6-2.3) mg/dL Total Bilirubin 1.0 (0.2-1.3) mg/dL AST 31 (17-59) IU/L ALT 33 (<50) IU/L Alkaline Phosphatase 87 (38-126) U/L Total Creatine Kinase 174 H (55-170) U/L Total Protein 8.0 (6.3-8.2) g/dL Albumin 4.7 (3.5-5.0) g/dL Globulin 3.3 (1.7-4.1) g/dL Albumin/Globulin Ratio 1.4 (1.0-2.8) Urine Dip Bedside Urine Glucose 1000 mg/dl Bedside Urine Bilirubin - Negative Bedside Urine Ketone - Negative Urine Specific [place] 1.015 Bedside Urine Occult Blood - Negative Bedside Urine pH 6.0 Bedside Urine Protein - Negative Bedside Urine Urobilinogen - Negative Bedside Urine Nitrite - Negative Bedside Urine Leukocytes - Negative Esterase Imaging Data US - DVT: Radiologist's Impression: [address] [address] Ultrasound Report Signed Patient: Yeyo Siddiqi MR#: [id number] : 1955 Acct:[id number] Age/Sex: 69 / M Date of Service: 08/02/24 Loc: ED Accession Number: [id number] Procedure: US periph venous low extrem rt Ordering Provider: Venita Lipscomb PA-C PROCEDURE: US PERIP VENOUS LOW EXTREM RT INDICATIONS: PAIN TECHNIQUE: Real-time imaging, as well as color and pulse Doppler interrogation, were performed of the lower extremity deep veins from the inguinal ligament to the popliteal fossa, with documentation of the visualized calf veins. COMPARISON: [facility], PERIP VENOUS LOW EXTREM RT, 07/17/2024, 12:54. FINDINGS: The common femoral, femoral, popliteal, and the visualized calf veins are normally compressible, and free of intraluminal thrombus. Color and pulse Doppler demonstrate normal phasic intraluminal flow. There is normal augmentation response to distal compression maneuver. IMPRESSION: No findings of lower extremity deep venous thrombosis. [facility] [address] [place] [id number] Scan Report Signed Patient: Yeyo Siddiqi MR#: [id number] : 1955 Acct:[id number] Age/Sex: 69 / M Date of Service: 08/02/24 Loc: ED Accession Number: [id number] Procedure: CT lumbar spine wo con Ordering Provider: Venita Lipscomb PA-C PROCEDURE: CT LUMBAR SPINE WO CON INDICATIONS: severe right leg pain, recent falls TECHNIQUE: Noncontrast 3 mm thick sections acquired from the T12 level to the sacrum. Sagittal and coronal reformats were constructed. For radiation dose reduction, the following was used: automated exposure control. COMPARISON: None. FINDINGS: Image quality: Excellent. Bones: There is normal bony alignment. No acute vertebral body compression fractures. No suspicious lytic or blastic bony lesions. No pars defects. Posterior disc protrusion and ligamentum flavum hypertrophy at L4-5 causing mild spinal canal narrowing. Low bone mineralization. Very slight S-shaped curvature of the spine. Soft tissues: No retroperitoneal masses or hematomas. Visualized aorta is normal in caliber. IMPRESSION: No acute, displaced fracture or traumatic subluxation. Moderate spinal canal narrowing at L4-5 due to degenerative disc disease and facet arthrosis. Low bone mineralization. Consider outpatient DEXA scan for confirmation. CT scan - abdomen/pelvis: Radiologist's Impression: [address] [address] [address] Scan Report Signed Patient: Maru Chaidez MR#: [id number] : 11/15/1953 Acct:[id number] Age/Sex: 70 / F Date of Service: 08/02/24 Loc: ED Accession Number: [id number] Procedure: CT abdomen pelvis w con Ordering Provider: Thomas Ness MD PROCEDURE: CT ABDOMEN PELVIS W CON INDICATIONS: IV contrast only/abdominal pain TECHNIQUE: After the administration of intravenous contrast, axial sections acquired from the lung bases to the pubic symphysis. Coronal and sagittal reformats were performed. For radiation dose reduction, the following was used: automated exposure control, adjustment of mA and/or kV according to patient size. COMPARISON: None. FINDINGS: Image quality: Diagnostic. Lower Chest: No significant findings. ABDOMEN: Liver: No solid mass. Gallbladder: No radiopaque gallstones or wall thickening. Biliary ducts: No biliary dilation. Pancreas: No ductal dilation. Spleen: Size is within normal limits. Adrenal Glands: No adrenal nodules. Kidneys and Ureters: No hydronephrosis. No solid mass. No complex renal cystic lesion which requires follow up. Stomach and Bowel: There is diffuse thickening of the gastric antrum with submucosal enhancement. Normal colonic caliber, without significant wall thickening. Normal caliber appendix in the right lower quadrant. Stool seen throughout the colon, which may represent constipation. Peritoneum: No abnormal intraperitoneal fluid. No free air. Ventral Wall: No significant ventral hernia. Abdominal Nodes: No retroperitoneal or mesenteric adenopathy by size criteria. Vessels: Aorta and inferior vena cava are normal in size. Dense aorto bi iliac atherosclerotic calcifications. PELVIS: Pelvic Organs: Surgically absent. Bladder: No bladder wall thickening, accounting for underdistention. Pelvic Nodes: No enlarged lymph nodes. Miscellaneous: No inguinal hernias are seen. Bones: No aggressive osseous abnormality. IMPRESSION: Diffuse thickening of the gastric antrum with submucosal enhancement. Findings may represent gastritis, underlying mass cannot be excluded. Recommend clinical correlation. Consider possible GI consultation/endoscopy. [address] [address] Ultrasound Report Signed Patient: Yeyo Siddiqi MR#: [id number] : 1955 Acct:[id number] Age/Sex: 69 / M Date of Service: 08/02/24 Loc: ED Accession Number: [id number] Procedure: periph venous low extrem rt Ordering Provider: Venita Lipscomb PA-C PROCEDURE: PERIPH VENOUS LOW EXTREM RT INDICATIONS: PAIN TECHNIQUE: Real-time imaging, as well as color and pulse Doppler interrogation, were performed of the lower extremity deep veins from the inguinal ligament to the popliteal fossa, with documentation of the visualized calf veins. COMPARISON: [facility], PERIPH VENOUS LOW EXTREM RT, 07/17/2024, 12:54. FINDINGS: The common femoral, femoral, popliteal, and the visualized calf veins are normally compressible, and free of intraluminal thrombus. Color and pulse Doppler demonstrate normal phasic intraluminal flow. There is normal augmentation response to distal compression maneuver. IMPRESSION: No findings of lower extremity deep venous thrombosis. Approved by: Trista Odom M.D.,Ph.D. on 08/02/2024 at 19:56 MDM Narrative Medical decision making narrative: 69-year-old male with a past medical history of hypertension, GERD, bipolar disorder, prediabetes who presents to the emergency department for right leg pain x5 days. Differential diagnosis includes but not limited to right lumbar radiculopathy, sciatica, peroneal nerve neuropathy, muscle spasm, muscle strain, DVT, electrolyte abnormalities, renal failure etc. On exam patient is in mild acute distress secondary to right hamstring and right lower leg pain, nontoxic-appearing, vital signs revealed mildly elevated heart rate and blood pressure, normal oxygen saturation and temperature. Patient has been seen in the emergency department twice prior for similar symptoms to today, he had improvement in the past with gabapentin and was Flexeril however he reports he has no longer helping. Knee x-ray on 07/17/2024 did reveal early degenerative arthritis and small marginal osteophytes. CT scan last night revealed the bones were ?unremarkable? there was small to moderate bilateral direct inguinal hernias containing fat and wall thickening of the 2nd portion of the duodenum suggestive of duodenitis. Patient's pain is in his right hamstring muscle region, and also he has pain and reported decreased sensation from the right knee all the way down to the right foot. These symptoms have been intermittent since early May 2024 when he ?tweaked? his right hip. He has a primary care doctor's appointment scheduled for Tuesday. I called and discussed last night CT scan with on-call radiologist Dr. Odom, who reports there is mild age-appropriate lumbar degenerative disc disease but otherwise no abnormalities of the lumbar spine or right hip. Discussed the case with the nighttime ED attending Dr. Campbell, would like to proceed with the additional right leg venous ultrasound. We will also obtain baseline CBC, CMP, magnesium, CK and UA. Normal POC UA, no signs of blood or infection. Labs reveal normal WBC count 8.9, hemoglobin 15.7 hematocrit 45.7. Normal sodium 137 potassium 3.8, BUN 16 and creatinine 0.90. Normal calcium 9.8. His glucose is elevated at 186. Normal liver enzymes. Magnesium and CK pending at my time of shift change. Patient aware and agreeable to transfer of care over to main emergency department. Patient is signed out to me at shift change pending final disposition. All lab work imaging studies vital signs nurse triage note medication list all reviewed. Patient was given Dilaudid 1 mg IV x2, Flomax, Solu-Medrol 125 IV here x1. Patient reports temporary relief pain after Dilaudid was given we will follow up with PM PCP appointment this coming Tuesday. Patient has been on gabapentin and Lyrica in the past and reports no significant relief for pain control. DC home on Percocet and Medrol Dosepak for pain control. He also reports positive fit [facility] and has a pending colonoscopy. Differential diagnosis includes DVT, sciatica, piriformis syndrome, neuropathy, arthritis, herniated disc. Discharge Plan Departure Patient Disposition: Home Clinical Impression: Acute leg pain Qualifiers: Laterality: right Qualified Code(s): M79.604 - Pain in right leg Instructions: DI for Leg Pain Activity Restrictions/Additional Instructions: Return with new or worsening symptoms. Follow up with PCP this coming Tuesday. Take your medicines as directed Prescriptions: New oxycodone-acetaminophen [Percocet] 5-325 mg tablet 1 tab PO Q4-6H PRN (Reason: pain) Qty: 20 0RF methylprednisolone [Medrol (Lj)] 4 mg tablets,dose pack See Rx Instructions .ROUTE .COMPLEX Qty: 21 0RF Rx Instructions: orally per package directions oxycodone-acetaminophen [Percocet] 5-325 mg tablet 1 tab PO Q6H PRN (Reason: pain) Qty: 20 0RF oxycodone-acetaminophen [Percocet] 5-325 mg tablet 1 tab PO Q4-6H PRN (Reason: pain) Qty: 20 0RF No Action quetiapine [Seroquel] 300 MG tablet 50 mg PO QDAY Qty: 0 metoprolol tartrate 25 MG tablet 75 mg PO BID Qty: 0 VITAMIN D (Vitamin D3) 1,000 unit PO QDAY Qty: 0 omega 3-jbh-zlc-fish oil [Fish Oil] 1,000 MG capsule Qty: 0 [cinnamon] Qty: 0 cyclobenzaprine 10 mg tablet 10 mg PO TID PRN (Reason: muscle spasm) Qty: 14 0RF pantoprazole [Protonix] 40 mg tablet,delayed release (DR/EC) 40 mg PO DAILY Qty: 30 0RF tamsulosin [Flomax] 0.4 mg capsule 0.4 mg PO DAILY Qty: 30 0RF gabapentin 100 mg capsule 100 mg PO BID-TID Qty: 30 0RF Referrals: Benita Goldman MD [Primary Care Provider] - Stand Alone Forms: Patient Portal/API/Survey
--- NOTE | 2024-08-02 17:45 | DI.CT.S_ITS ---
PROCEDURE: CT LUMBAR SPINE WO CON INDICATIONS: severe right leg pain, recent falls TECHNIQUE: Noncontrast 3 mm thick sections acquired from the T12 level to the sacrum. Sagittal and coronal reformats were constructed. For radiation dose reduction, the following was used: automated exposure control. COMPARISON: None. FINDINGS: Image quality: Excellent. Bones: There is normal bony alignment. No acute vertebral body compression fractures. No suspicious lytic or blastic bony lesions. No pars defects. Posterior disc protrusion and ligamentum flavum hypertrophy at L4-5 causing mild spinal canal narrowing. Low bone mineralization. Very slight S-shaped curvature of the spine. Soft tissues: No retroperitoneal masses or hematomas. Visualized aorta is normal in caliber. IMPRESSION: No acute, displaced fracture or traumatic subluxation. Moderate spinal canal narrowing at L4-5 due to degenerative disc disease and facet arthrosis. Low bone mineralization. Consider outpatient DEXA scan for confirmation. Dictated by: Vinnie Keenan M.D. on 08/02/2024 at 21:00 Approved by: Vinnie Keenan M.D. on 08/02/2024 at 21:04
[2024-08-02] MEDS: KETOROLAC 30 MG/ML VIAL 15 MG IV (18:21)
--- NOTE | 2024-08-02 18:27 | DI.US.S_ITS ---
PROCEDURE: US [facility] VENOUS LOW EXTREM RT INDICATIONS: PAIN TECHNIQUE: Real-time imaging, as well as color and pulse Doppler interrogation, were performed of the lower extremity deep veins from the inguinal ligament to the popliteal fossa, with documentation of the visualized calf veins. COMPARISON: [facility], , [facility] VENOUS LOW EXTREM RT, 07/17/2024, 12:54. FINDINGS: The common femoral, femoral, popliteal, and the visualized calf veins are normally compressible, and free of intraluminal thrombus. Color and pulse Doppler demonstrate normal phasic intraluminal flow. There is normal augmentation response to distal compression maneuver. IMPRESSION: No findings of lower extremity deep venous thrombosis. Approved by: Trista Odom M.D.,Ph.D. on 08/02/2024 at 19:56
[2024-08-02 18:37] LABS: Add Manual Diff / Slide Review NO; Basophils Absolute Auto 100 /uL (0-100); Basophils Percent Auto 0.6 % (0-2); Eosinophils Absolute Auto 100 /uL (0-450); Eosinophils Percent Auto 1.1 % (2-4); Hematocrit 45.7 % (41-53); Hemoglobin 15.7 g/dL (13.5-17.5); Lymphocytes Absolute Auto 2100 /uL (1100-4500); Lymphocytes Percent Auto 23.2 % (25-40); Mean Corpuscular HGB Conc 34.4 % (30-36); Mean Corpuscular Hemoglobin 30.3 PG (26-34); Mean Corpuscular Volume 88.1 fL (80-100); Monocytes Absolute Auto 800 /uL (0-900); Neutrophils Absolute Auto 5900 /uL (1500-7000); Neutrophils Percent Auto 66.1 % (50-75); Platelet Count 212 X10^3/uL (150-400); Red Blood Cell Count 5.18 X10^6/uL (4.5-5.9); White Blood Cell Count 8.9 X10^3/uL (4.5-11.0)
[2024-08-02 18:49] LABS: Alanine Aminotransferase 33 IU/L (<50); Albumin 4.7 g/dL (3.5-5.0); Albumin Globulin Ratio 1.4 (1.0-2.8); Alkaline Phosphatase 87 U/L (38-126); Aspartate Aminotransferase 31 IU/L (17-59); BUN Creatinine Ratio 17.8 (6-22); Blood Urea Nitrogen 16 mg/dL (9-20); Calcium 9.8 mg/dL (8.4-10.2); Carbon Dioxide 26 mmol/L (22-32); Chloride 99 mmol/L (98-107); Estimated Glomerular Filt Rate > 60 mL/min (>60); Globulin 3.3 g/dL (1.7-4.1); Glucose 186 mg/dL (70-99); HEMOLYSIS < 15 (0-50); Potassium 3.8 mmol/L (3.4-5.1); Sodium 137 mmol/L (137-145)
[2024-08-02 19:01] LABS: Creatine Kinase 174 U/L (55-170); Magnesium 1.7 mg/dL (1.6-2.3)
--- NOTE | 2024-08-02 19:09 | PC.NURSE ---
Pt reports right leg pain; states it occurred last night when he fell. Pt states no hx of blood clots. Denies surgery to right leg. States he feels like he is walking on paper. describes numbness; states he is still having issues urinating which he states was his reason fro coming in last night. Pt reports the pain does not feel like a leg cramp but states it feels like a sharp pain in his leg.
[2024-08-02 20:27] LABS: Uric Acid 3.7 mg/dL (3.5-8.5)
[2024-08-02] MEDS: HYDROMORPHONE 1 MG INJ IV ×2 (20:39→22:57)
[2024-08-02] MEDS: TAMSULOSIN 0.4 MG CAPSULE PO (20:40)
[2024-08-02] MEDS: PANTOPRAZOLE DR 20 MG TABLET 40 MG PO (20:40)
[2024-08-02] MEDS: methylPREDNISolone 125 MG/2 ML VIAL IV (22:57)
[2024-08-02] MEDS: ONDANSETRON 4 MG/2 ML INJ IV (23:48)
[2024-08-03] VITALS: BP 153/81; PULSE 83; RESP 18; O2SAT 94
== END 2024-08-03 00:55 | disposition home or self-care (01) ==
PROVIDERS: Family Medicine; Emergency Provider Physician Assistant; PCP Family Medicine
DX: M79.604 Pain in right leg (principal); R33.8 Other retention of urine
CPT/HCPCS: 36415; 72131; 80053; 81003; 82550; 83735; 84550; 85025; 93971; 96374; 96375; 96376; 99284; J1171; J1885; J2405; J2919

== ENCOUNTER → 2024-11-19 10:08 | Outpatient (CLI) | payer OTHER, MEDICARE, SELFPAY ==
--- NOTE | 2024-11-19 10:15 | DI.MRI.S_ITS ---
PROCEDURE: MR LUMBAR SPINE WO CON INDICATIONS: RIGHT FOOT DROP TECHNIQUE: Noncontrast sagittal T1 spin echo and T2 fast echo, sagittal STIR, and T2 fast spin echo through the lumbar spine. In cases with scoliosis, additional coronal T2 fast spin echo may be performed. COMPARISON: [facility], CT, CT LUMBAR SPINE WO CON, 08/02/2024, 18:01. FINDINGS: Image quality: Excellent. Alignment and Curvature: Straightening of the normal lumbar lordosis. Minimal retrolisthesis of L3 on L4 and L4 on L5. Bone Marrow: Marrow is of normal overall signal. No acute vertebral body compression fractures. Spinal Cord: Conus medullaris terminates at the L1 level. Visualized cord demonstrates normal signal and size. Paraspinous Soft Tissues: No paravertebral masses. T12-L1: Normal appearance. L1-L2: Disc desiccation and minimal disc bulge. Mild facet arthropathy. No central canal or neural foraminal stenosis. L2-L3: Disc desiccation and mild disc bulge. Facet arthropathy and thickening of ligamentum flavum. No significant central canal or neural foraminal stenosis. L3-L4: Disc desiccation and mild diffuse disc bulge. Facet arthropathy. No significant central canal stenosis. Mild bilateral neural foraminal stenosis. L4-L5: Disc desiccation and minimal disc bulge. Facet arthropathy and thickening of ligamentum flavum. No significant central canal stenosis. Narrowing of the right lateral recess with abutment versus impingement the descending right L5 nerve root. Mild bilateral neural foraminal stenosis. L5-S1: Disc desiccation and mild disc bulge. Facet arthropathy. Posterior annular tear. No central canal stenosis. Mild bilateral neural foraminal stenosis. IMPRESSION: 1. Multilevel degenerative changes of the lumbar spine as described above. 2. No significant central canal stenosis. Narrowing of the right lateral recess at L4-5 with abutment versus impingement the descending right L5 nerve root. 3. Mild bilateral neural foraminal stenosis L3-L4, L4-5 and L5-S1. Dictated by: Evelio Carmona M.D. on 11/19/2024 at 13:18 Approved by: Evelio Carmona M.D. on 11/19/2024 at 13:25
== END ==
PROVIDERS: PCP Family Medicine; Referring Provider Physician Assistant; Visit Provider Physician Assistant
DX: M21.371 Foot drop, right foot (principal); M51.369 Other intervertebral disc degeneration, lumbar region without mention of lumbar back pain or lower extremity pain; M48.061 Spinal stenosis, lumbar region without neurogenic claudication; M48.07 Spinal stenosis, lumbosacral region; M47.816 Spondylosis without myelopathy or radiculopathy, lumbar region; M47.817 Spondylosis without myelopathy or radiculopathy, lumbosacral region
CPT/HCPCS: 72148